=== PATIENT | female | born 1985 | race Caucasian/White ===

== ENCOUNTER 2017-10-03 09:00 | Inpatient (IN) | payer OTHER ==
[2017-10-04 14:07] VITALS: BMI 32.3
[2017-10-04] MEDS ORDERED: ELECTROLYTE-148 SOLN 1,000 ML IV SCH (14:15)
[2017-10-04] MEDS ORDERED: CITRIC ACID/SODIUM CITRATE 30 ML UNIT-DOSE CUP PO ONE (14:15)
--- NOTE | 2017-10-04 14:21 | HP ---
Past Medical History - Primary Care Physician PCP:: Chris Bustillos - Admission Chief Complaint: 39 weeks, previous c/s ,request of repeat c/s and BTL History of Present Illness: 32 yo f with 2 previous c/s , 39 weeks , requesting repeat c/s, risks discussed , cx clp, vx -3 mi, fhr cat 1, no contraction, risks of btl discussed , aware failure risks and risks of ectopic, hx of thrombocytopenia, ITP , plateletes 101 , risks of bleeding discussed History Source: Patient Limitations to Obtaining History: No Limitations - Past Medical History ...: 3 ...Para: 2 ...Term: 2 ...: 0 ...Spon : 0 ...Induced : 0 ...Multiple Gestation: 0 ...LMP: 01/10/17 ... Weeks Gestation by Dates: 39 ...EDC by Dates: 10/17/17 ...EDC by Sono: 10/10/17 Additional OB History: 2 previous c/s Heme/Onc: Yes: Thrombocytopenia (hx of ITP) - Past Surgical History Past Surgical History: Yes: Hx Myomectomy: No Hx Transabdominal Cerclage: No - Smoking History Smoking history: Never smoked Have you smoked in the past 12 months: No - Alcohol/Substance Use Hx Alcohol Use: No - Social History History of Recent Travel: No Home Medications - Allergies Allergies/Adverse Reactions: Allergies Allergy/AdvReac Type Severity Reaction Status Date / Time No Known Allergies Allergy Verified 10/04/17 13:34 - Home Medications Home Medications: Ambulatory Orders Vit/Iron Fum/Folic AC [ Tablet] 1 each PO DAILY 10/04/17 Review of Systems - Review of Systems Constitutional: reports: No Symptoms Eyes: reports: No Symptoms HENT: reports: No Symptoms Neck: reports: No Symptoms Cardiovascular: reports: No Symptoms Respiratory: reports: No Symptoms Gastrointestinal: reports: No Symptoms Genitourinary: reports: No Symptoms Breasts: reports: No Symptoms Reported Musculoskeletal: reports: No Symptoms Integumentary: reports: No Symptoms Neurological: reports: No Symptoms Endocrine: reports: No Symptoms Hematology/Lymphatic: reports: No Symptoms Psychiatric: reports: No Symptoms Physical Exam - Maternity Vital Signs: Vital Signs Temperature 98.3 F 10/04/17 13:47 Pulse Rate 72 10/04/17 13:47 Respiratory Rate 17 10/04/17 13:47 Blood Pressure 129/75 10/04/17 13:47 O2 Sat by Pulse Oximetry (%) Constitutional: Yes: Well Nourished, No Distress, Calm Eyes: Yes: WNL, Conjunctiva Clear, EOM Intact HENT: Yes: WNL, Atraumatic, Normocephalic Neck: Yes: WNL, Supple, Trachea Midline Cardiovascular: Yes: WNL, Regular Rate and Rhythm Breast(s): Yes: WNL - Abdominal Exam/OB Fundal Height: 40 Number of Fetuses: Single Presentation: Vertex Contractions: No Intensity: Unaware Monitor Mode: External Heart Rate Location: [facility] Category: I Accelerations: Uniform Decelerations: None - Vaginal Exam/OB Vaginal Bleediing: No Speculum Exam: No Dilatation (cm): 0 Effacement (%): 0 Amniotic Membrane Status: Intact Presentation: Vertex/Position Station: -3 - Physical Exam Musculoskeletal: Yes: WNL Edema: LLE: Trace, RLE: Trace ...Motor Strength: WNL Psychiatric: Yes: WNL Hemorrhage Risk Assessment - Risk Factors Medium Risk Factors: Yes: Prior , uterine surgery,or multiple laparotomies Risk Score: 1 Risk Level: Medium Risk Problem List - Problems (1) with 39 completed weeks gestation Code(s): Z3A.39 - 39 WEEKS GESTATION OF (2) Previous section complicating Code(s): O34.219 - MATERNAL CARE FOR UNSP TYPE SCAR FROM PREVIOUS DEL (3) Admission for sterilization Code(s): Z30.2 - ENCOUNTER FOR STERILIZATION Assessment/Plan repeat c/s and BTL, rba discussed
[2017-10-04] MEDS ORDERED: OXYTOCIN 20 UNITS in 0.9% NS 20 UNIT/1,000 ML INFUS.BAG IV ONE ×2 (14:30→16:34)
[2017-10-04] MEDS ORDERED: PHENYLEPHRINE HCL 10 MG/1 ML SINGLE DOSE VIAL ONE (15:18)
[2017-10-04] MEDS ORDERED: morphine SULFATE/Preservative Free 0.5 MG/ML (1cc Syringe) ONE (15:18)
[2017-10-04] MEDS ORDERED: ONDANSETRON 4 MG/2 ML VIAL IVPUSH PRN ×2 (15:38)
[2017-10-04] MEDS ORDERED: ceFAZolin SODIUM 1 GM VIAL ONE (15:41)
[2017-10-04] MEDS ORDERED: OXYTOCIN 10 UNITS/ML VIAL ONE (15:48)
[2017-10-04] MEDS ORDERED: BENZOCAINE 28 GM HEMORRHOIDAL OINTMENT PR PRN (16:25)
[2017-10-04] MEDS ORDERED: diphenhydrAMINE HCL 25 MG CAPSULE (FP) PO PRN (16:25)
[2017-10-04] MEDS ORDERED: BENZOCAINE 20% 57 GM BOTTLE TP PRN (16:25)
[2017-10-04] MEDS ORDERED: METHYLERGONOVINE MALEATE 0.2 MG/1 ML AMP IM PRN (16:25)
[2017-10-04] MEDS ORDERED: WITCH HAZEL 50% (TUCKS) 40 PAD/JAR PAD TP PRN (16:25)
[2017-10-04] MEDS ORDERED: oxyCODONE HCL 5 MG TABLET PO PRN ×2 (16:25)
[2017-10-04] MEDS ORDERED: ACETAMINOPHEN 1000 MG/100 ML VIAL (NON FORMULARY) IVPB PRN (16:27)
[2017-10-04] MEDS ORDERED: DEXTROSE 5%-LACTATED RINGERS 1,000 ML IV SCH (16:30)
[2017-10-04] MEDS ORDERED: OXYTOCIN 20 UNITS in 0.9% NS 20 UNIT/1,000 ML INFUS.BAG IV SCH (16:30)
[2017-10-04] MEDS ORDERED: ACETAMINOPHEN INJECTION 100 ML IVPB ONE (17:16)
[2017-10-04] MEDS ORDERED: CEFAZOLIN 1 GM/D5W 1 GM/50 ML BAG IVPB SCH (18:00)
[2017-10-05] MEDS: CEFAZOLIN 1 GM/D5W 1 GM/50 ML BAG IVPB SCH ×2 (01:27→09:49)
--- NOTE | 2017-10-05 07:27 | PN ---
Progress Note (short form) - Note Progress Note: pod 1 doing well, s/p c/s Last Vital Signs Temp Pulse Resp BP Pulse Ox 98.7 F 87 18 123/66 97 10/05/17 06:00 10/05/17 06:00 10/05/17 06:00 10/05/17 06:00 10/04/17 19:15 abdomen soft, no distension, no cva , incision dry, clean no excess vaginal bleeding , no calf tenderness plan ambulate, cbc, pain management Problem List - Problems (1) with 39 completed weeks gestation Code(s): Z3A.39 - 39 WEEKS GESTATION OF (2) Previous section complicating Code(s): O34.219 - MATERNAL CARE FOR UNSP TYPE SCAR FROM PREVIOUS DEL (3) Admission for sterilization Code(s): Z30.2 - ENCOUNTER FOR STERILIZATION
[2017-10-05 08:27] LABS: BASO % 0.6 % (0-2.0); EOS % 0.5 % (0-4.5); HEMATOCRIT 29.8 % (32.4-45.2); HEMOGLOBIN 10.1 GM/dL (10.7-15.3); LYMPH % 16.1 % (8-40); MCH 31.6 pg (25.7-33.7); MEAN CELL VOLUME 92.8 fl (80-96); MEAN PLT VOLUME 11.2 fl (7.5-11.1); MONO % 6.9 % (3.8-10.2); NEUT % 75.9 % (42.8-82.8); PLATELET COUNT 72 K/MM3 (134-434); RBC 3.21 M/mm3 (3.60-5.2); RDW 14.5 % (11.6-15.6); WHITE BLOOD COUNT 9.9 K/mm3 (4.0-10.0)
[2017-10-05] MEDS ORDERED: ENOXAPARIN NA (PORCINE) 40 MG/0.4 ML DISP.SYRIN SQ SCH (10:00)
--- NOTE | 2017-10-05 10:45 | PN ---
Progress Note (short form) - Note Progress Note: POD #1 - s/p under spinal anesthesia with duramorph. Pt. doing well, sitting up comfortably in chair baby. No complaints. Good pain control. No apparent anesthetic complications noted. Continue current care.
[2017-10-05] MEDS: SIMETHICONE 80 MG TAB.CHEW (FP) PO PRN (14:43)
[2017-10-05] MEDS: ACETAMINOPHEN 325 MG TABLET (FP) PO PRN (14:44)
--- NOTE | 2017-10-05 15:43 | OP ---
DATE OF OPERATION: 10/04/2017 PREOPERATIVE DIAGNOSIS: 39 weeks, 2 previous sections, request of repeat section and tubal ligation. POSTOPERATIVE DIAGNOSIS: 39 weeks, 2 previous sections, request of repeat section and tubal ligation. Pelvic adhesions, unable to do the tubal ligation. PROCEDURE: Repeat low segment transverse section. SURGEON: Bronwyn Ford M.D. LIQUEFIER: Joese Zheng ANESTHESIA: Spinal. ANESTHESIOLOGIST: Gael Osorio M.D. ESTIMATED BLOOD LOSS: 700 mL. OPERATION: Patient was taken to operating room with adequate epidural anesthesia. Abdomen and perineum were prepped and draped. Pfannenstiel abdominal skin incision was made over the previous incision. Incision was extended to subcutaneous fat and fascia was reached. Then fascia was cut transversely and then rectus muscles were in midline. Rectus muscles were adherent to the uterus along the lower uterine segment. The adhesions were very dense and were not able to visualize the tube and ovary because of the uterus muscle being adherent to the rectus muscle. At this time the adhesions were lysed and the lower uterine segment was identified, but the adhesions were partially lysed in the lower uterine segment until room was made for a low transverse uterine incision was made. Incision extended laterally with bandage scissors. Amniotic sac was entered, clear fluid. Head delivered from right occipital transverse position. Nasopharynx was suctioned. A live baby was delivered without any difficulty. Placenta was delivered manually. Uterine cavity was cleaned of all remaining tissue. Uterine incision was closed in 2 layers, the 1st layer with 0 Biosyn continuous suture, the 2nd layer with 0 Biosyn imbricating the 1st layer. Then the pelvic cavity irrigated, no active bleeding was seen. All the lap, sponge, and instrument counts were correct. Rectus muscles were brought together interrupted suture of 0 Vicryl. Fascia was closed with 0 Vicryl continuous suture. Subcutaneous fat with interrupted sutures 0 Vicryl, and the skin was closed with chris. The patient tolerated the procedure well and left the OR in good condition. BRONWYN FORD M.D. [id number]
[2017-10-05] MEDS ORDERED: BISACODYL 10 MG SUPP.RECT RC PRN (16:25)
[2017-10-06 08:19] LABS: BASO % 0.2 % (0-2.0); EOS % 1.5 % (0-4.5); HEMOGLOBIN 10.2 GM/dL (10.7-15.3); LYMPH % 18.4 % (8-40); MCH 31.7 pg (25.7-33.7); MCHC 34.2 g/dl (32.0-36.0); MEAN CELL VOLUME 92.7 fl (80-96); MEAN PLT VOLUME 11.7 fl (7.5-11.1); MONO % 6.7 % (3.8-10.2); NEUT % 73.2 % (42.8-82.8); PLATELET COUNT 99 K/MM3 (134-434); RBC 3.23 M/mm3 (3.60-5.2); RDW 14.6 % (11.6-15.6); WHITE BLOOD COUNT 11.6 K/mm3 (4.0-10.0)
[2017-10-06] MEDS: SIMETHICONE 80 MG TAB.CHEW (FP) PO PRN ×2 (08:35→17:53)
[2017-10-06] MEDS: ACETAMINOPHEN 325 MG TABLET (FP) PO PRN ×2 (08:36→17:53)
--- NOTE | 2017-10-06 09:36 | PN ---
Progress Note (short form) - Note Progress Note: pod 2 doing well, ambulating,passing gas CBC, BMP 10/06/17 07:30 Last Vital Signs Temp Pulse Resp BP Pulse Ox 97.9 F 88 18 118/72 97 10/06/17 08:21 10/06/17 08:21 10/06/17 08:21 10/06/17 08:21 10/04/17 19:15 abdomen soft, no distension, no cva incision dry, clean no calf tenderness no excess vaginal bleeding plan ambulate ,cbc in am Problem List - Problems (1) with 39 completed weeks gestation Code(s): Z3A.39 - 39 WEEKS GESTATION OF (2) Previous section complicating Code(s): O34.219 - MATERNAL CARE FOR UNSP TYPE SCAR FROM PREVIOUS DEL (3) Admission for sterilization Code(s): Z30.2 - ENCOUNTER FOR STERILIZATION
[2017-10-06] MEDS ORDERED: SENNOSIDES/DOCUSATE COMBO (SENNA PLUS) TABLET (UD) PO PRN (22:00)
[2017-10-07 08:43] LABS: BASO % 0.3 % (0-2.0); EOS % 2.7 % (0-4.5); HEMATOCRIT 28.3 % (32.4-45.2); HEMOGLOBIN 9.5 GM/dL (10.7-15.3); MCH 31.5 pg (25.7-33.7); MCHC 33.7 g/dl (32.0-36.0); MEAN CELL VOLUME 93.6 fl (80-96); MEAN PLT VOLUME 11.2 fl (7.5-11.1); MONO % 7.8 % (3.8-10.2); NEUT % 62.2 % (42.8-82.8); PLATELET COUNT 107 K/MM3 (134-434); RBC 3.02 M/mm3 (3.60-5.2); WHITE BLOOD COUNT 8.9 K/mm3 (4.0-10.0)
[2017-10-07 10:40] VITALS: BP 130/80; PULSE 86; TEMP 98
--- NOTE | 2017-10-07 13:36 | DS ---
Physical Exam-[employer] Vital Signs: Vital Signs Temperature 98.0 F 10/07/17 10:00 Pulse Rate 86 10/07/17 10:00 Respiratory Rate 20 10/07/17 10:00 Blood Pressure 130/80 10/07/17 10:00 O2 Sat by Pulse Oximetry (%) 97 10/04/17 19:15 Constitutional: Yes: Well Nourished, No Distress, Calm Eyes: Yes: WNL, Conjunctiva Clear, EOM Intact HENT: Yes: WNL, Atraumatic, Normocephalic Neck: Yes: WNL, Supple, Trachea Midline Cardiovascular: Yes: WNL, Regular Rate and Rhythm Respiratory: Yes: WNL, Regular, CTA Bilaterally Gastrointestinal: Yes: WNL ...Rectal Exam: Yes: WNL Renal/: Yes: WNL, Urethral Discharge ....Post : Yes: Uterus firm, Uterus non-tender, Slight lochia rubra Breast(s): Yes: WNL Musculoskeletal: Yes: WNL Extremities: Yes: WNL Integumentary: Yes: WNL Wound/Incision: Yes: Clean/Dry, Well Approximated, Roxanna Intact Neurological: Yes: WNL, Alert, Oriented ...Motor Strength: WNL Psychiatric: Yes: WNL, Alert, Oriented Labs: CBC, BMP 10/07/17 07:30 Delivery - Delivery Section: Primary, Low Flap Transverse (low lying placenta. no complication) Type of Anesthesia: Spinal EBL (cc): 700 Delivery, Single - Stages of Labor Date of Delivery: 10/04/17 Time of Delivery: 15:48 Time Placenta Delivered: 15:49 Placenta: Yes: Expressed - Condition of Infant [employer] Present: Yes Name: Isidro Cox Gender: Male Weight: 7 lb 2 oz Position: Right, OT Total Hours ROM (Hrs/Mins): 1 minute - 1 Minute Total Score: 9 5 Minutes Total Score: 9 - [place] Feeding Plan Initial Plan: Elected not to breastfeed exclusively throughout hospitalization Discharge Summary Reason For Visit: Current Active Problems Admission for sterilization (Acute) with 39 completed weeks gestation (Acute) Previous section complicating (Acute) Procedures: Principal: repeat LST c/s Other Procedures: lysis of pelvic adhesions Condition: Good - Instructions Diet, Activity, Other Instructions: regular diet, no intercourse , follow up [facility] care 1 week for staple removal Disposition: HOME - Home Medications Comprehensive Discharge Medication List: Ambulatory Orders Vit/Iron Fum/Folic AC [ Tablet] 1 each PO DAILY 10/04/17 Ibuprofen [Motrin -] 600 mg PO QID #28 tablet 10/07/17
== END 2017-10-07 13:45 | disposition home or self-care (01) | DRG 540 ==
LOC: JLDR 10-04 13:18 → J3W 10-04 19:47
PROVIDERS: ADMIT Obstetrics & Gynecology; ATTEND Obstetrics & Gynecology
PROC: 10D00Z1 Extraction of Products of Conception, Low, Open Approach (ICD-10-PCS; principal; 2017-10-04)
PROC: 0DNW0ZZ Release Peritoneum, Open Approach (ICD-10-PCS; 2017-10-04)
DX: O34.211 Maternal care for low transverse scar from previous cesarean delivery (principal); O99.89 Other specified diseases and conditions complicating pregnancy, childbirth and the puerperium; N85.8 Other specified noninflammatory disorders of uterus; N73.6 Female pelvic peritoneal adhesions (postinfective); Z3A.39 39 weeks gestation of pregnancy; Z37.0 Single live birth
CPT/HCPCS: 36415; 85025; 88307-TC; J0131